=== PATIENT | female | born 1985 | race Caucasian/White ===

== ENCOUNTER → 2020-03-10 | Outpatient (CLI) | payer BC | LOC: GMA CAST 15:17 | PROVIDERS: ATTEND Family Medicine Sports Medicine | DX: Z83.49 Family history of other endocrine, nutritional and metabolic diseases (principal); Z13.220 Encounter for screening for lipoid disorders ==

== ENCOUNTER → 2020-05-19 | Outpatient (CLI) | payer BC | LOC: GMA CAST 11:07 | PROVIDERS: ATTEND Family Medicine Sports Medicine | DX: R53.83 Other fatigue (principal) ==